=== PATIENT | male | born 1995 | race Caucasian/White ===

== ENCOUNTER 2020-09-18 05:49 | Emergency (ER) | payer MEDICAID ==
[~2020-09-18] VITALS: Ht 185.4 cm; Wt 81.0 kg
[2020-09-18 05:52] VITALS: BP 124/75
== END 2020-09-18 06:19 | disposition left against medical advice (07) ==
LOC: ER 05:50
DX: K08.89 Other specified disorders of teeth and supporting structures (principal); Z53.21 Procedure and treatment not carried out due to patient leaving prior to being seen by health care provider